=== PATIENT | male | born 1995 | race Caucasian/White ===

== ENCOUNTER 2021-12-29 07:01 | Emergency (ER) | payer SELFPAY ==
[~2021-12-29] VITALS: Ht 175.3 cm; Wt 68.0 kg
[2021-12-29] MEDS ORDERED: LORAZEPAM 1MG TABLET PO ONE (13:15)
[2021-12-29] MEDS ORDERED: HALOPERIDOL LACTATE 5MG/ML VIAL IM ONE (14:45)
[2021-12-29] MEDS ORDERED: LORAZEPAM 2MG/ML CPJ IM ONE (14:45)
[2021-12-29] MEDS ORDERED: LORAZEPAM 2MG/ML CPJ IM NR (16:15)
[2021-12-29] MEDS ORDERED: HALOPERIDOL LACTATE 5MG/ML VIAL IM NR (16:15)
[2021-12-30 02:55] VITALS: BP 113/74
== END 2021-12-30 02:56 | disposition home or self-care (01) ==
LOC: EDBD 07:01 → ER 07:01
DX: R46.2 Strange and inexplicable behavior (principal)
CPT/HCPCS: 99283; J1630; J2060